=== PATIENT | male | born 2005 ===

== ENCOUNTER 2024-03-04 02:47 | Emergency (ER) | payer SELFPAY ==
[~2024-03-04] VITALS: Ht 180.3 cm; Wt 107.7 kg
[2024-03-04 03:11] VITALS: BP 135/65; PULSE 67; RESP 12; TEMP 98.3; O2SAT 99
== END 2024-03-04 05:05 | disposition left against medical advice (07) ==
LOC: ER 02:59
DX: H92.09 Otalgia, unspecified ear (principal); Z53.21 Procedure and treatment not carried out due to patient leaving prior to being seen by health care provider